=== PATIENT | male | born 1985 | race African-American/Black ===

== ENCOUNTER 2017-06-10 13:16 | Emergency (ER) | payer OTHER ==
[~2017-06-10] VITALS: Ht 175.3 cm; Wt 80.5 kg
[2017-06-10] MEDS ORDERED: ALBUTEROL 90 MCG/ACT 8GM HFA INHALER INH ONE (14:00)
[2017-06-10] MEDS ORDERED: ALBU17IN INH (14:21)
[2017-06-10] MEDS ORDERED: SING10TA32 PO (14:21)
[2017-06-10] MEDS ORDERED: CLAR1TAB2 PO (14:21)
[2017-06-10] MEDS ORDERED: PRED20TA PO (14:21)
[2017-06-10 14:24] VITALS: BP 129/73
== END 2017-06-10 14:25 | disposition home or self-care (01) ==
LOC: M ED 13:16
DX: J45.909 Unspecified asthma, uncomplicated (principal)

== ENCOUNTER 2017-08-07 20:30 | Emergency (ER) | payer OTHER ==
[~2017-08-07] VITALS: Ht 180.3 cm; Wt 79.5 kg
[2017-08-07 20:30] VITALS: BP 129/73
[~2017-08-07 20:30] MED LIST: ALBU17IN INH; CLAR1TAB2 PO; PRED20TA PO; SING10TA32 PO
[2017-08-07] MEDS ORDERED: LIDOCAINE 2% MDV 20 ML VIAL SC ONE (22:30)
== END 2017-08-07 23:00 | disposition home or self-care (01) ==
LOC: M ED 20:30
DX: S51.811A Laceration without foreign body of right forearm, initial encounter (principal); W01.118A Fall on same level from slipping, tripping and stumbling with subsequent striking against other sharp object, initial encounter; Y92.89 Other specified places as the place of occurrence of the external cause; Y93.89 Activity, other specified; Y99.8 Other external cause status; J45.909 Unspecified asthma, uncomplicated

== ENCOUNTER → 2017-08-08 | Outpatient (CLI) | payer OTHER ==
[~2017-08-08] MED LIST changes: +METHACHOLINE KIT (J7674) INH ONE
--- NOTE | 2017-08-08 10:58 | PFTRPT ---
Tech: Juan Antonio MENDIETA RRT Age: 32 Sex: Male Race: Black Height: 71.00 Inches Weight: 178.00 Lbs BSA: 2.01 Diagnosis: R06.02 PULMONARY FUNCTION REPORT ORDERING PROVIDER: ELINA Zapata DATE OF SERVICE: 08/08/17 SPIROMETRY: The study is of excellent technical quality. The forced vital capacity is normal. The FEV1 is out of proportion. The obstructive index is, therefore, reduced. FLOW VOLUME LOOP: The expiratory limb of the flow volume loop does suggest an obstructive impairment. LUNG VOLUMES: The total lung capacity is mildly reduced. The residual volume is borderline for air trapping. DIFFUSION CAPACITY: The diffusion capacity is mildly elevated. HEMOGLOBIN: Hemoglobin was acceptable at 12.4. AIRWAY MECHANICS: Airway resistance and conductance are normal. 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 Please correlate clinically. MTDD
--- NOTE | 2017-08-08 11:32 | PFTRPT ---
Tech: Juan Antonio MENDIETA RRT Age: 32 Sex: Male Race: Black Height: 71.00 Inches Weight: 178.00 Lbs BSA: 2.01 Diagnosis: R06.02 METHACHOLINE CHALLENGE REPORT ORDERING PROVIDER: ELINA Zapata DATE OF SERVICE: INTERPRETATION: The study was of excellent technical quality. Under protocol, methacholine was administered. At a dose of 0.25 mg (1.375 CDUs), a 38% decline in the FEV1 was noted. The PC20 of 0.03 is significant. Flow rates returned to baseline post bronchodilator administration. IMPRESSION: Positive methacholine challenge study. MTDD
== END ==
LOC: M CARPUL 10:26
PROVIDERS: ATTEND Nurse Practitioner Adult Health
DX: R06.02 Shortness of breath (principal)